=== PATIENT | female | born 1955 | race Caucasian/White ===

== ENCOUNTER 2017-04-07 12:56 | Observation (INO) | payer BC ==
[~2017-04-07] VITALS: Ht 165.1 cm; Wt 135.5 kg
[~2017-04-07 12:56] MED LIST: BENTYL20 MG PO; CYCLOBENZAPRINE10 MG PO; ENDOCET 5-3251 EACH PO; Flagyl PO; HYZAAR 50-121 TABLE1 PO; Levaquin PO; Lopid PO; MUTI VITAMIN PO; Prevacid PO; REQUIP0.5 MG PO; SINGULAIR10 MG PO; ULTRAM50 MG PO
[2017-04-07 14:06] LABS: BASOPHIL COUNT 0.1 K/uL (0-0.1); EOSINOPHIL (%) 2.3 % (0-5); EOSINOPHIL COUNT 0.2 K/uL (0-0.3); HEMATOCRIT 43.1 % (36.0-46.0); IMMATURE GRANULOCYTE (%) 0.4 % (0.0-0.7); INSTRUMENT ABS NEUTROPHIL CT 5.4 K/uL; LYMPHOCYTE COUNT 1.5 K/uL (1.0-2.8); MCHC 33.4 G/DL (30.0-36.0); MCV 92.9 FL (83-99); MEAN PLAT.VOLUME 10.8 uM^3 (9.5-12.4); MONOCYTE (%) 10.1 % (3-12); MONOCYTE COUNT 0.8 K/uL (0-0.8); NEUTROPHIL COUNT 5.4 K/uL (1.8-6.4); PLATELET COUNT 162 K/uL (156-360); RBC DIS.WIDTH-CV 13.6 % (11.8-14.6); RBC DIS.WIDTH-SD 46.4 % (39-53); RED BLOOD COUNT 4.64 M/uL (3.80-5.20); WHITE BLOOD COUNT 7.9 K/uL (4.1-10.2)
[2017-04-07 14:16] LABS: ADD MIUA? YES; BILIRUBIN NEGATIVE; BLOOD NEGATIVE; COLOR YELLOW ((YELLOW)); GLUCOSE (STRIP) NEGATIVE; KETONES NEGATIVE; LEUKOCYTES MODERATE; NITRITE NEGATIVE; PROTEIN (STRIP) NEGATIVE; SPECIFIC GRAVITY 1.013 (1.000-1.030); UROBILINOGEN 0.2 MG/DL (0.2-1.0)
[2017-04-07 14:17] LABS: D-DIMER ELISA 1.52 mg/L FEU (< 0.57)
[2017-04-07 14:20] LABS: CHLORIDE 103 mEq/L (99-109); POTASSIUM 3.8 mEq/L (3.7-5.4); SODIUM 141 mEq/L (136-147)
[2017-04-07 14:22] LABS: GLUCOSE 97 mg/dL (70-99)
[2017-04-07 14:23] LABS: ANION GAP 12 MEQ/L (2-14)
[2017-04-07 14:24] LABS: TOTAL BILIRUBIN 1.2 mg/dL (0.0-1.0)
[2017-04-07 14:24] LABS: BACTERIA RARE /HPF; EPITHELIAL CELLS 1+ /HPF; GRANULAR CASTS 0-5 /LPF; MUCUS NONE SEEN /LPF; RED BLOOD CELLS 0-5 /HPF (0-5); UCUL ADDED? NO; WHITE BLOOD CELLS 0-5 /HPF (0-5)
[2017-04-07 14:25] LABS: ALKALINE PHOSPHATASE 68 IU/L (3-129)
[2017-04-07 14:26] LABS: GFR ESTIMATE (CALCULATED) > 59 mL/min/
[2017-04-07 14:27] LABS: UREA NITROGEN (BUN) 19 mg/dL (9-23)
[2017-04-07 14:29] LABS: LIPASE 31 U/L (1.0-51.0)
[2017-04-07] MEDS ORDERED: MIRALAX255 GM PO (19:14)
[2017-04-07] MEDS ORDERED: TRAMADOL HCL50 MG PO (19:14)
[2017-04-07] MEDS ORDERED: DULCOLAX5 MG PO (19:14)
[2017-04-07] MEDS ORDERED: VITAMIN B-122500 MCG SL (19:15)
[2017-04-07] MEDS ORDERED: CETIRIZINE HCL10 M2 PO (19:15)
[2017-04-07] MEDS ORDERED: BENADRYL25 MG PO (19:15)
[2017-04-07] MEDS ORDERED: HYDROXYCHLOROQ200 MG PO (19:17)
[2017-04-07] MEDS ORDERED: AMBIEN5 MG PO (19:17)
[2017-04-07] MEDS ORDERED: PROPRANOLOL HCL10 MG PO (19:17)
[2017-04-07] MEDS ORDERED: URSODIOL500 MG PO (19:18)
[2017-04-07] MEDS ORDERED: LANSOPRAZOLE30 MG PO (19:18)
[2017-04-07] MEDS ORDERED: VITAMIN D31000 UNI2 PO (19:18)
[2017-04-07] MEDS ORDERED: VITAMIN E400 UNIT PO (19:18)
[2017-04-07] MEDS ORDERED: CALCIUM 600 +1 EAC1 PO (19:19)
[2017-04-07] MEDS ORDERED: PREDNISOLONE AC15 ML RIGHT EYE (19:20)
[2017-04-07] MEDS ORDERED: OMNIPRED10 ML RIGHT EYE (19:21)
[2017-04-07] MEDS ORDERED: DAILY VITE1 EAC1 PO (19:22)
[2017-04-07] MEDS ORDERED: LOSARTAN-HCTZ1 EAC1 PO (19:23)
[2017-04-07 20:48] LABS: TROP-I INTERPRETATION NEGATIVE; TROPONIN-I < 0.01 ng/mL (0.0-0.30)
[2017-04-07 20:51] VITALS: BP 121/59
[2017-04-07 23:37] VITALS: BP 118/56
[2017-04-08 02:42] LABS: HEMATOCRIT 38.7 % (36.0-46.0); MCH 30.8 PG (29.0-34.0); MCHC 33.1 G/DL (30.0-36.0); MCV 93.3 FL (83-99); PLATELET COUNT 119 K/uL (156-360); RBC DIS.WIDTH-CV 13.6 % (11.8-14.6); RBC DIS.WIDTH-SD 46.3 % (39-53); RED BLOOD COUNT 4.15 M/uL (3.80-5.20); WHITE BLOOD COUNT 6.5 K/uL (4.1-10.2)
[2017-04-08 02:51] LABS: CHLORIDE 108 mEq/L (99-109); POTASSIUM 3.6 mEq/L (3.7-5.4); SODIUM 140 mEq/L (136-147)
[2017-04-08 02:53] LABS: GLUCOSE 99 mg/dL (70-99)
[2017-04-08 02:54] LABS: ANION GAP 8 MEQ/L (2-14)
[2017-04-08 02:55] LABS: TOTAL BILIRUBIN 1.1 mg/dL (0.0-1.0)
[2017-04-08 02:57] LABS: ALKALINE PHOSPHATASE 57 IU/L (3-129); GFR ESTIMATE (CALCULATED) > 59 mL/min/
[2017-04-08 02:58] LABS: UREA NITROGEN (BUN) 16 mg/dL (9-23)
[2017-04-08 03:03] LABS: TROP-I INTERPRETATION NEGATIVE; TROPONIN-I < 0.01 ng/mL (0.0-0.30)
[2017-04-08 03:52] VITALS: BP 109/54
[2017-04-08 07:00] VITALS: BP 116/58
[2017-04-08 11:31] VITALS: BP 118/62
[2017-04-08 12:53] LABS: TROP-I INTERPRETATION NEGATIVE; TROPONIN-I < 0.01 ng/mL (0.0-0.30)
[2017-04-08 19:36] VITALS: BP 115/56
[2017-04-09 00:11] VITALS: BP 100/53
[2017-04-09 04:32] VITALS: BP 114/56
[2017-04-09 08:45] VITALS: BP 132/67
== END 2017-04-09 09:53 | disposition home or self-care (01) ==
LOC: EME 12:56 → 5WEST 18:51 → EDOF 18:51 → 5WEST 20:24
PROVIDERS: Emergency Medicine; Internal Medicine
DX: R07.89 Other chest pain (principal); K21.9 Gastro-esophageal reflux disease without esophagitis; E78.00 Pure hypercholesterolemia, unspecified; I10 Essential (primary) hypertension; G89.4 Chronic pain syndrome; G25.81 Restless legs syndrome; E66.01 Morbid (severe) obesity due to excess calories; Z68.42 Body mass index [BMI] 45.0-49.9, adult; M19.90 Unspecified osteoarthritis, unspecified site; E78.5 Hyperlipidemia, unspecified; K74.3 Primary biliary cirrhosis; I85.00 Esophageal varices without bleeding; R82.71 Bacteriuria
CPT/HCPCS: 71020; 71275; 76705; 78227; 80053; 81003; 83605; 83690; 84484; 85025; 85027; 85379; 93005; 93306; 93970; 99281; 99285; A9537; G0378; J1644; J2405; J3010; J7030

== ENCOUNTER → 2017-04-21 | Outpatient (CLI) | payer BC ==
[~2017-04-21] MED LIST changes: +AMBIEN5 MG PO; +BENADRYL25 MG PO; +CALCIUM 600 +1 EAC1 PO; +CETIRIZINE HCL10 M2 PO; +DAILY VITE1 EAC1 PO; +DULCOLAX5 MG PO; +HYDROXYCHLOROQ200 MG PO; +LANSOPRAZOLE30 MG PO; +LOSARTAN-HCTZ1 EAC1 PO; +MIRALAX255 GM PO; +OMNIPRED10 ML RIGHT EYE; +PREDNISOLONE AC15 ML RIGHT EYE; +PROPRANOLOL HCL10 MG PO; +TRAMADOL HCL50 MG PO; +URSODIOL500 MG PO; +VITAMIN B-122500 MCG SL; +VITAMIN D31000 UNI2 PO; +VITAMIN E400 UNIT PO
== END | disposition home or self-care (01) ==
LOC: NUC 10:48
DX: M15.0 Primary generalized (osteo)arthritis (principal)
CPT/HCPCS: 78306; A9503

== ENCOUNTER → 2017-05-26 | Outpatient (CLI) | payer BC | END | disposition home or self-care (01) | DX: M17.11 Unilateral primary osteoarthritis, right knee (principal); R26.2 Difficulty in walking, not elsewhere classified; M25.561 Pain in right knee; M25.661 Stiffness of right knee, not elsewhere classified; M62.81 Muscle weakness (generalized) | CPT/HCPCS: 97110 GP; 97150 GO; 97161 GP; 97165 GO ==

== ENCOUNTER 2017-06-28 22:18 | Inpatient (IN) | payer BC ==
[~2017-06-28] VITALS: Ht 165.1 cm; Wt 135.9 kg
[~2017-06-28 22:18] MED LIST changes: -HYDROXYCHLOROQ200 MG PO; +PLAQUENIL200 MG PO
[2017-06-29 06:13] VITALS: BP 129/68
[2017-06-29 10:12] LABS: HEMATOCRIT 36.4 % (36.0-46.0); MCH 31.6 PG (29.0-34.0); MCHC 33.8 G/DL (30.0-36.0); MCV 93.6 FL (83-99); MEAN PLAT.VOLUME 11.5 uM^3 (9.5-12.4); PLATELET COUNT 104 K/uL (156-360); RBC DIS.WIDTH-CV 13.7 % (11.8-14.6); RBC DIS.WIDTH-SD 46.7 % (39-53); RED BLOOD COUNT 3.89 M/uL (3.80-5.20); WHITE BLOOD COUNT 4.7 K/uL (4.1-10.2)
[2017-06-29 10:56] VITALS: BP 115/58
[2017-06-29 15:28] VITALS: BP 140/67
[2017-06-29 19:38] VITALS: BP 133/64
[2017-06-30 00:19] VITALS: BP 135/65
[2017-06-30 03:35] VITALS: BP 130/62
[2017-06-30 05:53] LABS: HEMATOCRIT 39.6 % (36.0-46.0); MCV 91.5 FL (83-99)
[2017-06-30 06:16] LABS: ANION GAP 6 MEQ/L (2-14); CHLORIDE 102 MEQ/L (99-109); GFR ESTIMATE (CALCULATED) > 59 mL/min/; GLUCOSE 150 mg/dL (70-99); POTASSIUM 3.7 MEQ/L (3.7-5.4); SAMPLE HEMOLYSIS CHECK 0; SAMPLE ICTERIC CHECK 0; SAMPLE LIPEMIA CHECK 0; SODIUM 137 MEQ/L (136-147); UREA NITROGEN (BUN) 12 mg/dL (9-23)
[2017-06-30 07:38] VITALS: BP 135/61
[2017-06-30 11:32] VITALS: BP 145/65
[2017-06-30 15:43] VITALS: BP 141/63
[2017-06-30 20:04] VITALS: BP 134/61
[2017-07-01 00:19] VITALS: BP 124/65
[2017-07-01 04:21] VITALS: BP 123/59
[2017-07-01 07:26] LABS: HEMATOCRIT 38.5 % (36.0-46.0); MCV 92.3 FL (83-99)
[2017-07-01 07:39] VITALS: BP 129/61
[2017-07-01] MEDS ORDERED: ENDOCET 5-3251 EACH PO (08:33)
[2017-07-01] MEDS ORDERED: LOVENOX40 MG/0.4 SC (08:33)
[2017-07-01 11:47] VITALS: BP 115/56
[2017-07-01 13:43] VITALS: BP 117/60
[2017-07-01 13:44] VITALS: BP 115/55
== END 2017-07-01 14:46 | DRG 470 ==
LOC: ENRESERV 22:18 → 2SOUTH 06-29 05:30 → 3WEST 06-29 10:35 → 2SOUTH 06-29 11:08 → 3WEST 07-01 14:46
PROVIDERS: Orthopaedic Surgery
PROC: 0SRC0J9 Replacement of Right Knee Joint with Synthetic Substitute, Cemented, Open Approach (ICD-10-PCS; principal; 2017-06-29)
DX: M17.11 Unilateral primary osteoarthritis, right knee (principal); M06.9 Rheumatoid arthritis, unspecified; I10 Essential (primary) hypertension; M21.161 Varus deformity, not elsewhere classified, right knee; K21.9 Gastro-esophageal reflux disease without esophagitis; G25.81 Restless legs syndrome; E78.00 Pure hypercholesterolemia, unspecified; Z82.49 Family history of ischemic heart disease and other diseases of the circulatory system; Z80.41 Family history of malignant neoplasm of ovary; Z80.0 Family history of malignant neoplasm of digestive organs; Z80.8 Family history of malignant neoplasm of other organs or systems; M81.0 Age-related osteoporosis without current pathological fracture; Z20.1 Contact with and (suspected) exposure to tuberculosis; Z82.3 Family history of stroke; M54.40 Lumbago with sciatica, unspecified side; M54.2 Cervicalgia; K59.09 Other constipation; K44.9 Diaphragmatic hernia without obstruction or gangrene; J32.9 Chronic sinusitis, unspecified
CPT/HCPCS: 73560; 80048; 85014; 85018; 85027; C1713; J0690; J1170; J1650; J2250; J2405; J3010; J7030; J7050